=== PATIENT | female | born 1970 | race Caucasian/White ===

== ENCOUNTER 2017-05-30 11:11 | Emergency (ER) | payer MEDICAID ==
[~2017-05-30] VITALS: Ht 157.5 cm; Wt 67.0 kg
[~2017-05-30 11:11] MED LIST: ALBU18HF2 INH; BAC10T PO; BAC15O TP; CARB1TAB35 PO; CLIN-80 PO; CLON-527 PO; CYCL-1 PO; CYCL-35 PO; DEXT5TAB26 PO; GUAI473S11 PO; IBUP-1573 PO; IBUP-1574 PO; IBUP-1984 PO; LAMO25TA62 PO; OMEP-84 PO; ONDA4TAB59 PO; PRED20TA PO; ZIPR20CA2 PO; ZOF4T PO
[2017-05-30 11:42] LABS: BASOPHILS % (AUTO) 0.2 % (0-1); EOSINOPHILS # (AUTO) 0.1 X10'3 (0-0.9); HEMATOCRIT 29.6 % (35.0-45.0); HEMOGLOBIN 9.5 g/dl (12.0-16.0); LYMPHOCYTES # (AUTO) 0.4 X10'3 (1.1-4.8); LYMPHOCYTES % (AUTO) 4.3 % (21-51); MEAN CORPUSCULAR HEMOGLOBIN 24.8 PG (27.0-31.0); MEAN CORPUSCULAR HGB CONC 32.2 % (33.0-36.5); MEAN PLATELET VOLUME 7.6 FL (7.4-10.4); MONOCYTES # (AUTO) 0.2 X10'3 (0-0.9); NEUTROPHILS # (AUTO) 9.5 X10'3 (1.8-7.7); NEUTROPHILS % (AUTO) 92.5 % (42-75); PLATELET COUNT 232 X10'3 (140-440); RED BLOOD COUNT 3.84 X10'6 (4.20-5.60); WHITE BLOOD COUNT 10.3 X10'3 (4.5-11.0)
[2017-05-30 11:49] LABS: PARTIAL THROMBOPLASTIN TIME 23 SECONDS (22-32); PROTHROMBIN TIME 10.1 SECONDS (9.0-12.0)
[2017-05-30 11:55] LABS: ALANINE AMINOTRANSFERASE 27 U/L (12-78); ALBUMIN 3.6 G/DL (3.4-5.0); ALKALINE PHOSPHATASE 86 IU/L (46-116); ANION GAP 11 (8-16); ASPARTATE AMINO TRANSFERASE 15 U/L (10-37); BILIRUBIN,TOTAL 0.2 MG/DL (0.1-1.0); BLOOD UREA NITROGEN 18 MG/DL (7-18); BUN/CREATININE RATIO 20.7 (6.6-38.0); CALCIUM 8.2 MG/DL (8.5-10.1); CHLORIDE 108 MMOL/L (99-107); CREATININE 0.87 MG/DL (0.40-0.90); GLUCOSE 104 MG/DL (70-104); SODIUM 143 MMOL/L (135-145); TOTAL PROTEIN 7.3 G/DL (6.4-8.2); eGFR 70 ML/MIN
[2017-05-30] MEDS ORDERED: potassium Cl oral solution 20 MEQ/15 ML PO ONE (12:10)
[2017-05-30 12:15] LABS: ANISOCYTOSIS 2+; PLATELET ESTIMATE NORMAL; TOTAL CELLS COUNTED 100
[2017-05-30] MEDS ORDERED: azithromycin 250mg tablet PO ONE (12:35)
[2017-05-30] MEDS ORDERED: cyclobenzaprine 10mg tablet PO ONE (12:35)
[2017-05-30] MEDS ORDERED: AZIT-63 PO (13:08)
[2017-05-30] MEDS ORDERED: ketorolac trometh. 30mg/ml inj. IM ONE (13:10)
[2017-05-30 14:05] VITALS: BP 120/72
== END 2017-05-30 14:28 | disposition home or self-care (01) ==
LOC: ER 11:12
DX: R07.89 Other chest pain (principal); R91.8 Other nonspecific abnormal finding of lung field; I10 Essential (primary) hypertension; J45.909 Unspecified asthma, uncomplicated; G89.29 Other chronic pain; K21.9 Gastro-esophageal reflux disease without esophagitis; M19.90 Unspecified osteoarthritis, unspecified site; F15.10 Other stimulant abuse, uncomplicated; F17.210 Nicotine dependence, cigarettes, uncomplicated; Z56.0 Unemployment, unspecified; Z88.6 Allergy status to analgesic agent; Z88.8 Allergy status to other drugs, medicaments and biological substances; Z79.899 Other long term (current) drug therapy
CPT/HCPCS: 36415; 71045; 80053; 84484; 85025; 85610; 85730; 93005; 96372; 99285; J1885

== ENCOUNTER 2017-06-05 20:34 | Emergency (ER) | payer MEDICAID ==
[~2017-06-05] VITALS: Ht 157.5 cm; Wt 70.0 kg
[~2017-06-05 20:34] MED LIST changes: +AZIT-63 PO
[2017-06-05 21:39] LABS: BASOPHILS % (AUTO) 0.6 % (0-1); EOSINOPHILS # (AUTO) 0.1 X10'3 (0-0.9); EOSINOPHILS % (AUTO) 1.9 % (0-6); HEMATOCRIT 29.1 % (35.0-45.0); HEMOGLOBIN 9.4 g/dl (12.0-16.0); LYMPHOCYTES # (AUTO) 2.2 X10'3 (1.1-4.8); LYMPHOCYTES % (AUTO) 28.7 % (21-51); MEAN CORPUSCULAR HEMOGLOBIN 24.4 PG (27.0-31.0); MEAN CORPUSCULAR HGB CONC 32.2 % (33.0-36.5); MEAN CORPUSCULAR VOLUME 75.8 FL (78-98); MEAN PLATELET VOLUME 7.8 FL (7.4-10.4); MONOCYTES # (AUTO) 0.8 X10'3 (0-0.9); MONOCYTES % (AUTO) 10.2 % (2-12); NEUTROPHILS # (AUTO) 4.4 X10'3 (1.8-7.7); NEUTROPHILS % (AUTO) 58.6 % (42-75); PLATELET COUNT 389 X10'3 (140-440); RED BLOOD COUNT 3.84 X10'6 (4.20-5.60); RED CELL DISTRIBUTION WIDTH 17.9 % (11.5-14.5); WHITE BLOOD COUNT 7.6 X10'3 (4.5-11.0)
[2017-06-05 21:48] LABS: PARTIAL THROMBOPLASTIN TIME 25 SECONDS (22-32); PROTHROMBIN TIME 10.2 SECONDS (9.0-12.0)
[2017-06-05 21:53] LABS: ALANINE AMINOTRANSFERASE 40 U/L (12-78); ALBUMIN/GLOBULIN RATIO 0.8 (1.1-1.5); ALKALINE PHOSPHATASE 104 IU/L (46-116); ANION GAP 10 (8-16); ASPARTATE AMINO TRANSFERASE 7 U/L (10-37); BILIRUBIN,TOTAL 0.1 MG/DL (0.1-1.0); BLOOD UREA NITROGEN 10 MG/DL (7-18); BUN/CREATININE RATIO 13.7 (6.6-38.0); CALCIUM 8.3 MG/DL (8.5-10.1); CHLORIDE 106 MMOL/L (99-107); CREATININE 0.73 MG/DL (0.40-0.90); GLUCOSE 100 MG/DL (70-104); POTASSIUM 3.5 MMOL/L (3.5-5.1); SODIUM 140 MMOL/L (135-145); TOTAL CARBON DIOXIDE 23.9 MMOL/L (24-32); TOTAL PROTEIN 6.9 G/DL (6.4-8.2); eGFR 85 ML/MIN
[2017-06-05] MEDS ORDERED: GUAI600T45 PO (22:19)
[2017-06-05] MEDS ORDERED: LEVO500T2 PO (22:19)
[2017-06-05] MEDS ORDERED: ALBU8.5H8 INH (22:19)
[2017-06-05 22:30] VITALS: BP 154/72
== END 2017-06-05 22:31 | disposition home or self-care (01) ==
LOC: ER 20:36
DX: J18.9 Pneumonia, unspecified organism (principal); I10 Essential (primary) hypertension; J45.909 Unspecified asthma, uncomplicated; K21.9 Gastro-esophageal reflux disease without esophagitis; G89.29 Other chronic pain; M19.90 Unspecified osteoarthritis, unspecified site; F15.10 Other stimulant abuse, uncomplicated; Z56.0 Unemployment, unspecified; Z88.6 Allergy status to analgesic agent; Z79.899 Other long term (current) drug therapy
CPT/HCPCS: 36415; 71045; 80053; 84484; 85025; 85610; 85730; 93005; 99285

== ENCOUNTER → 2017-06-07 | Emergency (ER) | payer MEDICAID ==
[~2017-06-07] VITALS: Ht 165.1 cm; Wt 66.0 kg
[~2017-06-07] MED LIST changes: +ALBU8.5H8 INH; +GUAI600T45 PO; +LEVO500T2 PO
[2017-06-07 17:41] VITALS: BP 139/83
== END | disposition home or self-care (01) ==
LOC: ER 16:54
DX: J18.9 Pneumonia, unspecified organism (principal); I10 Essential (primary) hypertension; F15.10 Other stimulant abuse, uncomplicated; J45.909 Unspecified asthma, uncomplicated; G89.29 Other chronic pain; K21.9 Gastro-esophageal reflux disease without esophagitis; Z90.49 Acquired absence of other specified parts of digestive tract; Z88.6 Allergy status to analgesic agent; Z88.8 Allergy status to other drugs, medicaments and biological substances; Z79.899 Other long term (current) drug therapy; Z56.0 Unemployment, unspecified
CPT/HCPCS: 99281

== ENCOUNTER 2017-06-18 13:53 | Emergency (ER) | payer MEDICAID ==
[~2017-06-18] VITALS: Ht 157.5 cm; Wt 61.0 kg
[~2017-06-18 13:53] MED LIST changes: -LEVO500T2 PO
[2017-06-18 15:16] VITALS: BP 126/80
[2017-06-18 15:52] LABS: BASOPHILS % (AUTO) 0.8 % (0-1); EOSINOPHILS # (AUTO) 0.1 X10'3 (0-0.9); EOSINOPHILS % (AUTO) 1.9 % (0-6); HEMATOCRIT 31.6 % (35.0-45.0); HEMOGLOBIN 10.2 g/dl (12.0-16.0); LYMPHOCYTES # (AUTO) 1.3 X10'3 (1.1-4.8); LYMPHOCYTES % (AUTO) 26.1 % (21-51); MEAN CORPUSCULAR HEMOGLOBIN 24.3 PG (27.0-31.0); MEAN CORPUSCULAR HGB CONC 32.3 % (33.0-36.5); MEAN CORPUSCULAR VOLUME 75.4 FL (78-98); MEAN PLATELET VOLUME 7.6 FL (7.4-10.4); MONOCYTES # (AUTO) 0.5 X10'3 (0-0.9); MONOCYTES % (AUTO) 9.1 % (2-12); NEUTROPHILS # (AUTO) 3.2 X10'3 (1.8-7.7); NEUTROPHILS % (AUTO) 62.1 % (42-75); PLATELET COUNT 522 X10'3 (140-440); RED BLOOD COUNT 4.19 X10'6 (4.20-5.60); RED CELL DISTRIBUTION WIDTH 18.3 % (11.5-14.5); WHITE BLOOD COUNT 5.2 X10'3 (4.5-11.0)
[2017-06-18 16:12] LABS: ALANINE AMINOTRANSFERASE 26 U/L (12-78); ALBUMIN 3.9 G/DL (3.4-5.0); ALKALINE PHOSPHATASE 105 IU/L (46-116); ANION GAP 11 (8-16); ASPARTATE AMINO TRANSFERASE 16 U/L (10-37); BILIRUBIN,TOTAL 0.3 MG/DL (0.1-1.0); BLOOD UREA NITROGEN 19 MG/DL (7-18); BUN/CREATININE RATIO 12.4 (6.6-38.0); CALCIUM 8.8 MG/DL (8.5-10.1); CHLORIDE 103 MMOL/L (99-107); CREATININE 1.53 MG/DL (0.40-0.90); GLUCOSE 96 MG/DL (70-104); POTASSIUM 3.2 MMOL/L (3.5-5.1); SODIUM 140 MMOL/L (135-145); TOTAL CARBON DIOXIDE 25.9 MMOL/L (24-32); TROPONIN I < 0.04 NG/ML (0.0-0.05); eGFR 36 ML/MIN
[2017-06-18] MEDS ORDERED: ipratropium/albuterol 3ml nebule NEB ONE (16:40)
[2017-06-18] MEDS ORDERED: ALBU8.5H8 IH (16:45)
[2017-06-18] MEDS ORDERED: POTA10TA10 PO (16:45)
[2017-06-18] MEDS ORDERED: METH4TAB81 PO (16:45)
[2017-06-30] MEDS ORDERED: PANT-47 PO (15:11)
[2017-06-30] MEDS ORDERED: POLY17PO10 PO (15:12)
[2017-06-30] MEDS ORDERED: ONDA8TAB9 PO (15:24)
== END 2017-06-18 17:47 | disposition home or self-care (01) ==
LOC: ER 13:54
DX: J45.909 Unspecified asthma, uncomplicated (principal); D64.9 Anemia, unspecified; E87.6 Hypokalemia; I10 Essential (primary) hypertension; K21.9 Gastro-esophageal reflux disease without esophagitis; G89.29 Other chronic pain; M19.90 Unspecified osteoarthritis, unspecified site; F15.10 Other stimulant abuse, uncomplicated; F17.200 Nicotine dependence, unspecified, uncomplicated; Z56.0 Unemployment, unspecified; Z88.6 Allergy status to analgesic agent; Z88.8 Allergy status to other drugs, medicaments and biological substances; Z79.899 Other long term (current) drug therapy
CPT/HCPCS: 36415; 80053; 84484; 85025; 93005; 94640; 94760; 99285

== ENCOUNTER 2017-10-23 14:11 | Emergency (ER) | payer MEDICAID ==
[~2017-10-23] VITALS: Ht 157.5 cm; Wt 61.8 kg
[~2017-10-23 14:11] MED LIST changes: +ALBU8.5H8 IH; -AZIT-63 PO; -CLIN-80 PO; +CLIN300C85 PO; +METH4TAB81 PO; +ONDA8TAB9 PO; +PANT-47 PO
[2017-10-23 14:17] VITALS: BP 181/117
[2017-10-23] MEDS ORDERED: PENI500T2 PO (14:25)
[2017-10-23] MEDS ORDERED: ACET1TAB12 PO (14:25)
== END 2017-10-23 14:33 | disposition home or self-care (01) ==
LOC: ER 14:12
DX: K08.89 Other specified disorders of teeth and supporting structures (principal); I10 Essential (primary) hypertension; J45.909 Unspecified asthma, uncomplicated; K21.9 Gastro-esophageal reflux disease without esophagitis; G89.29 Other chronic pain; M19.90 Unspecified osteoarthritis, unspecified site; F15.90 Other stimulant use, unspecified, uncomplicated; Z90.49 Acquired absence of other specified parts of digestive tract; Z98.51 Tubal ligation status; Z56.0 Unemployment, unspecified; Z88.6 Allergy status to analgesic agent; Z88.8 Allergy status to other drugs, medicaments and biological substances; Z79.899 Other long term (current) drug therapy
CPT/HCPCS: 99283

== ENCOUNTER 2017-11-04 21:03 | Emergency (ER) | payer MEDICAID ==
[~2017-11-04] VITALS: Ht 157.5 cm; Wt 61.8 kg
[~2017-11-04 21:03] MED LIST changes: +ACET1TAB12 PO; +PENI500T2 PO
[2017-11-04 21:17] VITALS: BP 157/96
[2017-11-04 22:15] LABS: BASOPHILS % (AUTO) 0.4 % (0-1); EOSINOPHILS # (AUTO) 0.1 X10'3 (0-0.9); EOSINOPHILS % (AUTO) 1.4 % (0-6); HEMOGLOBIN 12.4 g/dl (12.0-16.0); LYMPHOCYTES # (AUTO) 1.3 X10'3 (1.1-4.8); LYMPHOCYTES % (AUTO) 15.8 % (21-51); MEAN CORPUSCULAR HEMOGLOBIN 28.6 PG (27.0-31.0); MEAN CORPUSCULAR HGB CONC 32.6 % (33.0-36.5); MEAN CORPUSCULAR VOLUME 87.8 FL (78-98); MEAN PLATELET VOLUME 9.2 FL (7.4-10.4); MONOCYTES # (AUTO) 0.5 X10'3 (0-0.9); MONOCYTES % (AUTO) 6.9 % (2-12); NEUTROPHILS % (AUTO) 75.5 % (42-75); PLATELET COUNT 251 X10'3 (140-440); RED BLOOD COUNT 4.33 X10'6 (4.20-5.60); RED CELL DISTRIBUTION WIDTH 16.9 % (11.5-14.5); WHITE BLOOD COUNT 7.9 X10'3 (4.5-11.0)
[2017-11-04 22:23] LABS: URINE HCG NEGATIVE (NEG)
[2017-11-04 22:26] LABS: PROTHROMBIN TIME 10.3 SECONDS (9.0-12.0)
[2017-11-04 22:32] LABS: CLARITY,URINE CLEAR (Clear); COLOR,URINE YELLOW (Yellow); GLUCOSE, URINE NEGATIVE (Neg); KETONES,URINE NEGATIVE (Neg); LEUKOCYTE ESTERASE ,URINE NEGATIVE (Neg); NITRITES, URINE NEGATIVE (Neg); OCCULT BLOOD,URINE NEGATIVE (Neg); PROTEIN,URINE NEGATIVE (Neg); UROBILINOGEN,URINE 0.2 E.U/dL (0.2-1.0)
[2017-11-04 22:33] LABS: ALANINE AMINOTRANSFERASE 19 U/L (12-78); ALBUMIN 3.4 G/DL (3.4-5.0); ALBUMIN/GLOBULIN RATIO 1.1 (1.1-1.5); ALKALINE PHOSPHATASE 82 IU/L (46-116); ANION GAP 7 (8-16); ASPARTATE AMINO TRANSFERASE 16 U/L (10-37); BILIRUBIN,TOTAL 0.2 MG/DL (0.1-1.0); BLOOD UREA NITROGEN 13 MG/DL (7-18); BUN/CREATININE RATIO 15.9 (6.6-38.0); CHLORIDE 104 MMOL/L (99-107); CREATININE 0.82 MG/DL (0.40-0.90); GLUCOSE 73 MG/DL (70-104); POTASSIUM 3.2 MMOL/L (3.5-5.1); SODIUM 138 MMOL/L (135-145); TOTAL CARBON DIOXIDE 27.4 MMOL/L (24-32); TOTAL PROTEIN 6.5 G/DL (6.4-8.2); eGFR 75 ML/MIN
[2017-11-04 22:37] LABS: UA COLLECTION TYPE CLN CATCH MIDSTREAM
[2017-11-04 23:13] LABS: URINE AMPHETAMINE SCREEN POSITIVE (Neg); URINE BARBITUATE SCREEN NEGATIVE (Neg); URINE BENZODIAZEPINES SCREEN NEGATIVE (Neg); URINE CANNABINOID SCREEN NEGATIVE (Neg); URINE COCAINE SCREEN NEGATIVE (Neg); URINE METHADONE SCREEN NEGATIVE (Neg); URINE OPIATE SCREEN POSITIVE (Neg); URINE PHENCYCLIDINE SCREEN NEGATIVE (Neg)
[2017-11-04 23:20] LABS: LIPASE 202 U/L (73-393)
== END 2017-11-04 23:31 | disposition home or self-care (01) ==
LOC: ER 21:04
DX: K29.70 Gastritis, unspecified, without bleeding (principal); I10 Essential (primary) hypertension; J45.909 Unspecified asthma, uncomplicated; K21.9 Gastro-esophageal reflux disease without esophagitis; F17.200 Nicotine dependence, unspecified, uncomplicated; F15.90 Other stimulant use, unspecified, uncomplicated; F31.9 Bipolar disorder, unspecified; Z90.49 Acquired absence of other specified parts of digestive tract; Z98.51 Tubal ligation status; Z56.0 Unemployment, unspecified; Z88.8 Allergy status to other drugs, medicaments and biological substances; Z79.2 Long term (current) use of antibiotics; Z79.899 Other long term (current) drug therapy
CPT/HCPCS: 36415; 80053; 80305; 81003; 81025; 83690; 85025; 85610; 99291

== ENCOUNTER 2017-11-21 10:09 | Emergency (ER) | payer MEDICAID ==
[~2017-11-21] VITALS: Ht 157.5 cm; Wt 63.6 kg
[~2017-11-21 10:09] MED LIST changes: -ALBU18HF2 INH; -ALBU8.5H8 IH; -ALBU8.5H8 INH; -BAC10T PO; -BAC15O TP; -CARB1TAB35 PO; +CEPH500C5 PO; -CLIN300C85 PO; -CLON-527 PO; -CYCL-1 PO; -CYCL-35 PO; -DEXT5TAB26 PO; -GUAI473S11 PO; -GUAI600T45 PO; -IBUP-1573 PO; -IBUP-1574 PO; -IBUP-1984 PO; -LAMO25TA62 PO; -METH4TAB81 PO; -OMEP-84 PO; -ONDA4TAB59 PO; -ONDA8TAB9 PO; -PRED20TA PO; -ZIPR20CA2 PO; -ZOF4T PO
[2017-11-21 10:49] LABS: BASOPHILS % (AUTO) 0.3 % (0-1); EOSINOPHILS # (AUTO) 0.2 X10'3 (0-0.9); EOSINOPHILS % (AUTO) 1.4 % (0-6); HEMATOCRIT 34.1 % (35.0-45.0); HEMOGLOBIN 11.6 g/dl (12.0-16.0); LYMPHOCYTES # (AUTO) 1.2 X10'3 (1.1-4.8); LYMPHOCYTES % (AUTO) 10.7 % (21-51); MEAN CORPUSCULAR HEMOGLOBIN 30.2 PG (27.0-31.0); MEAN PLATELET VOLUME 8.6 FL (7.4-10.4); MONOCYTES # (AUTO) 0.7 X10'3 (0-0.9); MONOCYTES % (AUTO) 6.5 % (2-12); NEUTROPHILS % (AUTO) 81.1 % (42-75); PLATELET COUNT 261 X10'3 (140-440); RED BLOOD COUNT 3.83 X10'6 (4.20-5.60); RED CELL DISTRIBUTION WIDTH 17.2 % (11.5-14.5); WHITE BLOOD COUNT 11.1 X10'3 (4.5-11.0)
[2017-11-21 10:55] LABS: CLARITY,URINE SLIGHTLY CLOUDY (Clear); COLOR,URINE YELLOW (Yellow); GLUCOSE, URINE NEGATIVE (Neg); KETONES,URINE NEGATIVE (Neg); LEUKOCYTE ESTERASE ,URINE LARGE (Neg); NITRITES, URINE NEGATIVE (Neg); OCCULT BLOOD,URINE TRACE-LYSED (Neg); PH,URINE 6.5 (4.8-8.0); PROTEIN,URINE NEGATIVE (Neg); UROBILINOGEN,URINE 0.2 E.U/dL (0.2-1.0)
[2017-11-21 10:57] LABS: UA COLLECTION TYPE CLN CATCH MIDSTREAM
[2017-11-21 11:00] LABS: PROTHROMBIN TIME 10.6 SECONDS (9.0-12.0)
[2017-11-21 11:03] LABS: URINE HCG NEGATIVE (NEG)
[2017-11-21 11:05] LABS: ALANINE AMINOTRANSFERASE 22 U/L (12-78); ALBUMIN 3.1 G/DL (3.4-5.0); ALKALINE PHOSPHATASE 102 IU/L (46-116); ANION GAP 7 (8-16); ASPARTATE AMINO TRANSFERASE 16 U/L (10-37); BILIRUBIN,TOTAL 0.4 MG/DL (0.1-1.0); BLOOD UREA NITROGEN 7 MG/DL (7-18); BUN/CREATININE RATIO 8.2 (6.6-38.0); CALCIUM 8.1 MG/DL (8.5-10.1); CHLORIDE 106 MMOL/L (99-107); CREATININE 0.85 MG/DL (0.40-0.90); GLUCOSE 96 MG/DL (70-104); POTASSIUM 3.8 MMOL/L (3.5-5.1); SODIUM 139 MMOL/L (135-145); TOTAL PROTEIN 6.3 G/DL (6.4-8.2); eGFR 72 ML/MIN
[2017-11-21 11:26] LABS: BACTERIA,URINE 3+ /HPF (Neg); MUCUS STRANDS MODERATE /LPF (Neg); RBC,URINE 0-2 /HPF (0-2); SQUAMOUS EPITHELIAL CELL,UR MANY /LPF (FEW); WBC,URINE 30-50 /HPF (0-4)
[2017-11-21] MEDS ORDERED: HYDROcodone/acetaminophen 5mg/325mg tablet PO ONE (12:05)
[2017-11-21] MEDS ORDERED: dicyclomine 10mg/ml 2ml ampule IM ONE (12:05)
[2017-11-21] MEDS ORDERED: DICY10CA88 PO (13:01)
[2017-11-21] MEDS ORDERED: IBUP-1985 PO (13:01)
[2017-11-21 13:19] VITALS: BP 115/65
== END 2017-11-21 13:28 | disposition home or self-care (01) ==
LOC: ER 10:10
DX: N83.209 Unspecified ovarian cyst, unspecified side (principal); I10 Essential (primary) hypertension; J45.909 Unspecified asthma, uncomplicated; K21.9 Gastro-esophageal reflux disease without esophagitis; G89.29 Other chronic pain; M19.90 Unspecified osteoarthritis, unspecified site; F17.200 Nicotine dependence, unspecified, uncomplicated; F15.90 Other stimulant use, unspecified, uncomplicated; Z90.49 Acquired absence of other specified parts of digestive tract; Z88.6 Allergy status to analgesic agent; Z79.899 Other long term (current) drug therapy; Z56.0 Unemployment, unspecified
CPT/HCPCS: 36415; 80053; 81001; 81025; 85025; 85610; 96372; 99284; J0500

== ENCOUNTER 2018-02-18 06:11 | Emergency (ER) | payer MEDICAID ==
[~2018-02-18] VITALS: Ht 157.5 cm; Wt 61.8 kg
[~2018-02-18 06:11] MED LIST changes: +IBUP-1985 PO; -PENI500T2 PO
[2018-02-18 06:20] VITALS: BP 178/106
[2018-02-18] MEDS ORDERED: ACET-3067 PO (06:34)
[2018-02-18] MEDS ORDERED: acetaminophen w/codeine (30MG) #3 tablet PO ONE (06:35)
[2018-02-18] MEDS ORDERED: PENI500T2 PO (06:35)
[2018-02-19] MEDS ORDERED: AZIT250T2 PO (10:03)
== END 2018-02-18 06:30 | disposition home or self-care (01) ==
LOC: ER 06:12
DX: K02.9 Dental caries, unspecified (principal); I10 Essential (primary) hypertension; J45.909 Unspecified asthma, uncomplicated; K21.9 Gastro-esophageal reflux disease without esophagitis; M19.90 Unspecified osteoarthritis, unspecified site; F15.90 Other stimulant use, unspecified, uncomplicated; Z88.6 Allergy status to analgesic agent; Z79.899 Other long term (current) drug therapy; Z90.49 Acquired absence of other specified parts of digestive tract; Z98.51 Tubal ligation status; Z87.19 Personal history of other diseases of the digestive system; Z87.09 Personal history of other diseases of the respiratory system
CPT/HCPCS: 99283

== ENCOUNTER 2018-02-18 17:05 | Emergency (ER) | payer MEDICAID ==
[~2018-02-18] VITALS: Ht 157.5 cm; Wt 61.8 kg
[~2018-02-18 17:05] MED LIST changes: +ACET-3067 PO; +PENI500T2 PO
[2018-02-18] MEDS ORDERED: metoclopramide 5 mg/ml inj IM ONE (19:30)
[2018-02-18] MEDS ORDERED: diphenhydrAMINE 50 mg/ml inj IM ONE (19:30)
[2018-02-18 19:45] VITALS: BP 147/87
[2018-02-19] MEDS ORDERED: AZIT250T2 PO (10:03)
== END 2018-02-18 19:52 | disposition home or self-care (01) ==
LOC: ER 17:05
DX: R51 Headache (principal); R11.2 Nausea with vomiting, unspecified; I10 Essential (primary) hypertension; J45.909 Unspecified asthma, uncomplicated; K21.9 Gastro-esophageal reflux disease without esophagitis; G89.29 Other chronic pain; M19.90 Unspecified osteoarthritis, unspecified site; F15.90 Other stimulant use, unspecified, uncomplicated; Z90.49 Acquired absence of other specified parts of digestive tract; Z98.51 Tubal ligation status; Z88.6 Allergy status to analgesic agent; Z88.8 Allergy status to other drugs, medicaments and biological substances; Z56.0 Unemployment, unspecified
CPT/HCPCS: 96372; 99283; J1200; J2765

== ENCOUNTER 2018-02-19 09:13 | Emergency (ER) | payer MEDICAID ==
[~2018-02-19] VITALS: Ht 157.5 cm; Wt 64.9 kg
[2018-02-19] MEDS ORDERED: AZIT250T2 PO (10:03)
[2018-02-19 10:23] VITALS: BP 130/76
== END 2018-02-19 10:25 | disposition home or self-care (01) ==
LOC: ER 09:13
DX: J20.9 Acute bronchitis, unspecified (principal); J45.909 Unspecified asthma, uncomplicated; I10 Essential (primary) hypertension; K21.9 Gastro-esophageal reflux disease without esophagitis; G89.29 Other chronic pain; M19.90 Unspecified osteoarthritis, unspecified site; F17.200 Nicotine dependence, unspecified, uncomplicated; F15.90 Other stimulant use, unspecified, uncomplicated; Z90.49 Acquired absence of other specified parts of digestive tract; Z98.51 Tubal ligation status; Z88.6 Allergy status to analgesic agent; Z79.2 Long term (current) use of antibiotics; Z56.0 Unemployment, unspecified
CPT/HCPCS: 93005; 99283

== ENCOUNTER 2018-03-06 09:05 | Emergency (ER) | payer MEDICAID ==
[~2018-03-06] VITALS: Ht 157.5 cm; Wt 61.8 kg
[2018-03-06 09:26] VITALS: BP 164/103
== END 2018-03-06 10:10 | disposition home or self-care (01) ==
LOC: ER 09:06
DX: M79.671 Pain in right foot (principal); K04.7 Periapical abscess without sinus; I10 Essential (primary) hypertension; J45.909 Unspecified asthma, uncomplicated; K21.9 Gastro-esophageal reflux disease without esophagitis; G89.29 Other chronic pain; F15.90 Other stimulant use, unspecified, uncomplicated; Z90.49 Acquired absence of other specified parts of digestive tract; Z98.51 Tubal ligation status; Z56.0 Unemployment, unspecified; Z88.6 Allergy status to analgesic agent; Z88.5 Allergy status to narcotic agent
CPT/HCPCS: 99281

== ENCOUNTER 2018-07-30 11:11 | Emergency (ER) | payer MEDICAID ==
[~2018-07-30] VITALS: Ht 157.5 cm; Wt 62.7 kg
[2018-07-30 12:47] VITALS: BP 141/86
[2018-07-30] MEDS ORDERED: ACET-2119 PO (14:35)
[2018-07-30] MEDS ORDERED: PENI500T2 PO (14:35)
== END 2018-07-30 14:43 | disposition home or self-care (01) ==
LOC: ER 11:12
DX: K04.7 Periapical abscess without sinus (principal); K05.10 Chronic gingivitis, plaque induced; K03.81 Cracked tooth; I10 Essential (primary) hypertension; J45.909 Unspecified asthma, uncomplicated; K21.9 Gastro-esophageal reflux disease without esophagitis; G89.29 Other chronic pain; M19.90 Unspecified osteoarthritis, unspecified site; F15.90 Other stimulant use, unspecified, uncomplicated; Z90.49 Acquired absence of other specified parts of digestive tract; Z98.51 Tubal ligation status; Z56.0 Unemployment, unspecified; Z88.6 Allergy status to analgesic agent; Z88.8 Allergy status to other drugs, medicaments and biological substances; Z79.899 Other long term (current) drug therapy
CPT/HCPCS: 99283

== ENCOUNTER 2019-03-01 05:20 | Emergency (ER) | payer MEDICAID ==
[~2019-03-01] VITALS: Ht 157.5 cm; Wt 69.5 kg
[2019-03-01 05:24] VITALS: BP 184/111
[2019-03-01] MEDS ORDERED: AMOX500C2 PO (05:45)
[2019-03-01] MEDS ORDERED: HYDR-3965 PO (05:45)
[2019-03-01] MEDS ORDERED: PRED20TA PO (05:45)
[2019-03-01] MEDS ORDERED: ONDA4TAB6 PO (05:45)
[2019-03-01] MEDS ORDERED: ondansetron 4mg rapidly disintigrating tab PO ONE (06:10)
[2019-03-01] MEDS ORDERED: HYDROcodone/acetaminophen 5mg/325mg tablet PO ONE (06:10)
== END 2019-03-01 06:15 | disposition home or self-care (01) ==
LOC: ER 05:21
DX: K02.9 Dental caries, unspecified (principal); I10 Essential (primary) hypertension; J45.909 Unspecified asthma, uncomplicated; K21.9 Gastro-esophageal reflux disease without esophagitis; G89.29 Other chronic pain; F41.9 Anxiety disorder, unspecified; F31.9 Bipolar disorder, unspecified; F15.90 Other stimulant use, unspecified, uncomplicated; Z90.49 Acquired absence of other specified parts of digestive tract; Z98.51 Tubal ligation status; Z56.0 Unemployment, unspecified; Z88.6 Allergy status to analgesic agent; Z88.5 Allergy status to narcotic agent; Z79.2 Long term (current) use of antibiotics; Z79.899 Other long term (current) drug therapy
CPT/HCPCS: 99283

== ENCOUNTER 2019-10-29 14:06 | Emergency (ER) | payer MEDICAID ==
[~2019-10-29] VITALS: Ht 157.5 cm; Wt 73.1 kg
[~2019-10-29 14:06] MED LIST changes: -ACET-3067 PO; -ACET1TAB12 PO; -CEPH500C5 PO; -IBUP-1985 PO; +ONDA4TAB6 PO; -PANT-47 PO; -PENI500T2 PO
[2019-10-29 14:21] VITALS: BP 182/104
[2019-10-29 14:46] LABS: URINE HCG NEGATIVE (NEG)
[2019-10-29 14:51] LABS: CLARITY,URINE SLIGHTLY CLOUDY (Clear); COLOR,URINE STRAW (Yellow); GLUCOSE, URINE NEGATIVE (Neg); KETONES,URINE NEGATIVE (Neg); LEUKOCYTE ESTERASE ,URINE LARGE (Neg); NITRITES, URINE NEGATIVE (Neg); OCCULT BLOOD,URINE TRACE-INTACT (Neg); PROTEIN,URINE NEGATIVE (Neg); UROBILINOGEN,URINE 0.2 E.U/dL (0.2-1.0)
[2019-10-29 14:52] LABS: UA COLLECTION TYPE CLN CATCH MIDSTREAM
[2019-10-29 15:02] LABS: RBC,URINE 0-2 /HPF (0-2); WBC,URINE 30-50 /HPF (0-4)
[2019-10-29 15:03] LABS: BACTERIA,URINE 2+ /HPF (Neg); MUCUS STRANDS FEW /LPF (Neg); SQUAMOUS EPITHELIAL CELL,UR MODERATE /LPF (FEW); TRICHOMONAS,URINE FEW /HPF (NEGATIVE); WBC CLUMPS,URINE MODERATE /HPF (NEGATIVE)
[2019-10-29] MEDS ORDERED: AMOX-422 PO (15:05)
== END 2019-10-29 15:15 | disposition home or self-care (01) ==
LOC: ER 14:06
DX: N39.0 Urinary tract infection, site not specified (principal); K08.89 Other specified disorders of teeth and supporting structures; N89.8 Other specified noninflammatory disorders of vagina; I10 Essential (primary) hypertension; J45.909 Unspecified asthma, uncomplicated; K21.9 Gastro-esophageal reflux disease without esophagitis; G89.29 Other chronic pain; F41.9 Anxiety disorder, unspecified; F31.9 Bipolar disorder, unspecified; F17.200 Nicotine dependence, unspecified, uncomplicated; F15.90 Other stimulant use, unspecified, uncomplicated; M19.90 Unspecified osteoarthritis, unspecified site; Z59.0 Homelessness; Z56.0 Unemployment, unspecified; Z90.49 Acquired absence of other specified parts of digestive tract; Z98.51 Tubal ligation status; Z72.89 Other problems related to lifestyle; Z88.6 Allergy status to analgesic agent; Z79.899 Other long term (current) drug therapy
CPT/HCPCS: 81001; 81025; 87088; 99283

== ENCOUNTER 2020-07-20 10:48 | Emergency (ER) | payer MEDICAID ==
[~2020-07-20] VITALS: Ht 157.5 cm; Wt 78.0 kg
[~2020-07-20 10:48] MED LIST changes: +BARIUM SULFATE 340 ML SUSP.RECON***PROCEDURE AREA ONLY**DONT ENTER PO ONE
[2020-07-20 11:15] VITALS: BP 141/105
[2020-07-20] MEDS ORDERED: acetaminophen/codeine 120mg/12mg per 5ml cup PO ONE (12:55)
[2020-07-20] MEDS ORDERED: famotidine 20mg tablet PO ONE (12:55)
[2020-07-20] MEDS ORDERED: ACET5SOL2 PO ×2 (14:42→14:46)
[2020-07-20] MEDS ORDERED: PANT-47 PO (14:42)
== END 2020-07-20 15:04 | disposition home or self-care (01) ==
LOC: ER 10:49
DX: K13.70 Unspecified lesions of oral mucosa (principal); R07.0 Pain in throat; I10 Essential (primary) hypertension; J45.909 Unspecified asthma, uncomplicated; K21.9 Gastro-esophageal reflux disease without esophagitis; G89.29 Other chronic pain; M19.90 Unspecified osteoarthritis, unspecified site; F15.90 Other stimulant use, unspecified, uncomplicated; F17.200 Nicotine dependence, unspecified, uncomplicated; Z87.81 Personal history of (healed) traumatic fracture; Z56.0 Unemployment, unspecified; Z59.0 Homelessness; Z90.49 Acquired absence of other specified parts of digestive tract; Z98.51 Tubal ligation status; Z87.01 Personal history of pneumonia (recurrent); Z88.6 Allergy status to analgesic agent; Z88.8 Allergy status to other drugs, medicaments and biological substances; Z79.899 Other long term (current) drug therapy
CPT/HCPCS: 74220; 99283

== ENCOUNTER 2021-10-17 03:57 | Inpatient (IN) | payer MEDICAID ==
[~2021-10-17] VITALS: Ht 157.5 cm; Wt 71.4 kg
[2021-10-17] VITALS (12 sets, daily range): BP systolic 91–123; BP diastolic 49–73
[~2021-10-17 03:57] MED LIST changes: +ACET5SOL2 PO; -BARIUM SULFATE 340 ML SUSP.RECON***PROCEDURE AREA ONLY**DONT ENTER PO ONE; +PANT-47 PO
[2021-10-17] MEDS ORDERED: magnesium Cl slow-release 64mg tablet PO PRN (04:40)
[2021-10-17] MEDS ORDERED: magnesium hydroxide 30ml (MOM) UD suspension PO PRN (04:40)
[2021-10-17] MEDS ORDERED: HYDROcodone/acetaminophen 5mg/325mg tablet PO PRN ×2 (04:40→14:45)
[2021-10-17] MEDS: normal saline 1000ml 1,000 ML IV SCH ×2 (04:40→14:40)
[2021-10-17] MEDS ORDERED: POTASSIUM BICARB 20meq eff tab 20 MEQ TABLET.EFF PO PRN ×2 (04:40)
[2021-10-17] MEDS ORDERED: magnesium 2GM in 50ml NS 50 ML IV PRN (04:40)
[2021-10-17] MEDS ORDERED: morphine 2 MG/ML inj. syringe IV PRN ×3 (04:40→14:10)
[2021-10-17] MEDS ORDERED: acetaminophen 325mg tablet PO PRN ×2 (04:40)
[2021-10-17] MEDS ORDERED: magnesium 4gm in 100ml NS 100 ML IV PRN (04:40)
[2021-10-17] MEDS ORDERED: HYDROcodone/acetaminophen 10/325mg tab PO PRN (04:40)
[2021-10-17] MEDS ORDERED: potassium CL 10mEq/100ml bag 100 ML IV PRN (04:40)
[2021-10-17] MEDS ORDERED: ondansetron/PF 4mg/2ml inj IV PRN ×2 (04:40→14:10)
[2021-10-17] MEDS ORDERED: LISI20TA28 PO (04:42)
[2021-10-17] MEDS ORDERED: CIME200T95 PO (04:42)
[2021-10-17] MEDS ORDERED: VALA100031 PO (04:42)
[2021-10-17] MEDS ORDERED: PANT20TA18 PO (04:42)
[2021-10-17] MEDS ORDERED: VALA500T PO (05:08)
--- NOTE | 2021-10-17 07:15 | NUR ---
Patient in room [facility]TH[facility] 4015A. I have received report from PHIL TENORIO FROM ER and had the opportunity to ask questions and assume patient care.
[2021-10-17] MEDS: K and/or MAG REPLACEMENT MC SCH ×2 (08:00→20:00)
[2021-10-17] MEDS: heparin, porcine 5000 units/ml vial SQ SCH ×2 (08:00→20:00)
[2021-10-17] MEDS: valacyclovir 500mg tablet PO SCH (08:06)
[2021-10-17] MEDS: pantoprazole 40mg Tablet.DR PO SCH (08:07)
[2021-10-17] MEDS: lisinopril 20mg tablet PO SCH (08:24)
[2021-10-17 08:47] LABS: ALANINE AMINOTRANSFERASE 40 U/L (12-78); ALBUMIN 3.3 G/DL (3.4-5.0); ALKALINE PHOSPHATASE 93 IU/L (46-116); ANION GAP 12 (8-16); ASPARTATE AMINO TRANSFERASE 40 U/L (10-37); BILIRUBIN,TOTAL 0.2 MG/DL (0.1-1.0); BLOOD UREA NITROGEN 9 MG/DL (7-18); BUN/CREATININE RATIO 8.7 (6.6-38.0); CALCIUM 7.6 MG/DL (8.5-10.1); CHLORIDE 108 MMOL/L (99-107); CREATININE 1.03 MG/DL (0.40-0.90); GLUCOSE 93 MG/DL (70-104); POTASSIUM 3.7 MMOL/L (3.5-5.1); SODIUM 145 MMOL/L (135-145); TOTAL CARBON DIOXIDE 25.4 MMOL/L (24-32); TOTAL PROTEIN 6.7 G/DL (6.4-8.2); eGFR 56 ML/MIN
[2021-10-17 08:58] LABS: BASOPHILS % (AUTO) 0.6 % (0-1); EOSINOPHILS % (AUTO) 0.7 % (0-6); LYMPHOCYTES # (AUTO) 0.9 X10'3 (1.1-4.8); LYMPHOCYTES % (AUTO) 26.7 % (21-51); MEAN CORPUSCULAR HEMOGLOBIN 26.5 PG (27.0-31.0); MEAN CORPUSCULAR HGB CONC 32.3 g/dL (33.0-36.5); MEAN CORPUSCULAR VOLUME 82.3 FL (78-98); MONOCYTES # (AUTO) 0.3 X10'3 (0-0.9); MONOCYTES % (AUTO) 9.8 % (2-12); NEUTROPHILS # (AUTO) 2.2 X10'3 (1.8-7.7); NEUTROPHILS % (AUTO) 62.2 % (42-75); PLATELET COUNT 177 X10'3 (140-440); RED BLOOD COUNT 4.13 X10'6 (4.20-5.60); RED CELL DISTRIBUTION WIDTH 17.2 % (11.5-14.5); WHITE BLOOD COUNT 3.5 X10'3 (4.5-11.0)
[2021-10-17 10:04] LABS: APTT 24 SECONDS (22-32)
[2021-10-17] MEDS: piperacillin/tazo 3.375gm/50ml 50 ML IV SCH ×2 (11:17→17:09)
[2021-10-17] MEDS ORDERED: BUPIVAcaine/PF 2.5 mg/ml (0.25%) 30ml vial ONE (11:28)
[2021-10-17] MEDS ORDERED: LIDOcaine 1% 30ml preserv. free vial ONE (11:28)
[2021-10-17] MEDS ORDERED: INDOCYANINE GREEN 25 MG/10 ML VIAL IV STA (11:53)
[2021-10-17] MEDS ORDERED: glycopyrrolate 0.2mg/ml inj ONE (13:17)
[2021-10-17] MEDS ORDERED: neostigmine methylsulfate 1 MG/ML 10ml vial ONE (13:17)
[2021-10-17] MEDS ORDERED: sevoflurane 250ml liquid IH ONE (13:17)
[2021-10-17] MEDS ORDERED: dexamethasone sod phosphate 10mg/ml inj ONE (13:17)
[2021-10-17] MEDS ORDERED: ondansetron/PF 4mg/2ml inj ONE (13:17)
[2021-10-17] MEDS ORDERED: midazolam 1 mg/ML 2ml injection ONE (13:29)
[2021-10-17] MEDS ORDERED: fentaNYL /PF 50mcg/ml 5ml ampule ONE (13:29)
[2021-10-17] MEDS ORDERED: LIDOcaine 2% (20mg/ml) 5ml vial ONE (13:31)
[2021-10-17] MEDS ORDERED: rocuronium 10mg/ml inj IV ONE ×2 (13:31→13:33)
[2021-10-17] MEDS ORDERED: propofol inj 20 ML IV ONE (13:31)
[2021-10-17] MEDS ORDERED: ringers solution, lacted 1,000 ML IV SCH (14:10)
[2021-10-17] MEDS ORDERED: meperidine/PF 25mg/ml syringe IV PRN ×3 (14:10)
[2021-10-17] MEDS ORDERED: proCHLORperazine 10 MG/2 ml inj IV PRN (14:10)
[2021-10-17] MEDS ORDERED: morphine 4 MG/ML inj SYRINge IV PRN (14:10)
[2021-10-17] MEDS ORDERED: ketorolac trometh. 30mg/ml inj. ONE (14:21)
[2021-10-17] MEDS ORDERED: acetaminophen 1,000mg/100ml IV 100 ML IV ONE (14:21)
--- NOTE | 2021-10-17 14:35 | NUR ---
PT WAS MOVED TO BED IN OR-PT COVID + THEREFORE RECOVERY WAS DONE IN OR, PT WAKING UP, VSS, DENIES PAIN, DR SHULTZ PRESENT-REPORT GIVEN, 4 BANDAIDS TO ABD-CDI, SCDS ON, 18G PIV TO LFA-LR RUNNING, FIELD START IV NOTED TO RIGHT UE, DENIES N/V.
[2021-10-17] MEDS ORDERED: naloxone 0.4 mg/ml inj IV PRN (14:45)
--- NOTE | 2021-10-17 15:25 | NUR ---
Patient in room ORTHO 4015A. I have received report from PHIL DAY FROM RECOVERY and had the opportunity to ask questions and assume patient care.
--- NOTE | 2021-10-17 15:25 | NUR ---
PT TAKEN VIA BED BACK TO ROOM 4015, WITH N93 MASK ON PT. VSS, PT DENIES PAIN, ALERT AND ASKING FOR SOMETHING TO DRINK, REPORT GIVEN TO MAIK VILLARREAL-ALL QUESTIONS ANSWERED, NO CHANGES IN ASSESSMENT-LAP SITES X 4 INTACT, PT GIVEN CALL LIGHT, BED LOW AND LOCKED, HOOKED UP TO VS MACHINE, RN IN ROOM TO RECEIVE PT.
--- NOTE | 2021-10-17 19:10 | NUR ---
Problems reprioritized. Patient report given, questions answered & plan of care reviewed with PHIL ESCOBEDO.
[2021-10-17] MEDS ORDERED: temazepam 15mg capsule PO PRN (21:00)
[2021-10-17] MEDS: HYDROcodone/acetaminophen 10/325mg tab PO PRN (21:48)
[2021-10-18] MEDS: piperacillin/tazo 3.375gm/50ml 50 ML IV SCH (00:12)
[2021-10-18] MEDS: normal saline 1000ml 1,000 ML IV SCH (00:16)
[2021-10-18 01:39] VITALS: BP 131/68
[2021-10-18] MEDS: HYDROcodone/acetaminophen 10/325mg tab PO PRN ×2 (05:05→19:20)
[2021-10-18 06:00] VITALS: BP 124/60
[2021-10-18 06:24] LABS: BASOPHILS % (AUTO) 0.1 % (0-1); EOSINOPHILS % (AUTO) 0 % (0-6); HEMATOCRIT 33.3 % (35.0-45.0); HEMOGLOBIN 10.7 g/dl (12.0-16.0); LYMPHOCYTES # (AUTO) 0.4 X10'3 (1.1-4.8); LYMPHOCYTES % (AUTO) 11.5 % (21-51); MEAN CORPUSCULAR HEMOGLOBIN 26.2 PG (27.0-31.0); MEAN CORPUSCULAR HGB CONC 32.3 g/dL (33.0-36.5); MEAN CORPUSCULAR VOLUME 81.1 FL (78-98); MEAN PLATELET VOLUME 8.8 FL (7.4-10.4); MONOCYTES # (AUTO) 0.3 X10'3 (0-0.9); MONOCYTES % (AUTO) 7.8 % (2-12); NEUTROPHILS # (AUTO) 2.9 X10'3 (1.8-7.7); NEUTROPHILS % (AUTO) 80.6 % (42-75); PLATELET COUNT 175 X10'3 (140-440); RED CELL DISTRIBUTION WIDTH 16.8 % (11.5-14.5); WHITE BLOOD COUNT 3.6 X10'3 (4.5-11.0)
--- NOTE | 2021-10-18 06:32 | NUR ---
Problems reprioritized. Patient report given, questions answered & plan of care reviewed with leo Dukes.
--- NOTE | 2021-10-18 06:50 | NUR ---
Patient in room ORTHO 4015A. I have received report from PHIL ESCOBEDO and had the opportunity to ask questions and assume patient care.
[2021-10-18 06:57] LABS: ALANINE AMINOTRANSFERASE 48 U/L (12-78); ALBUMIN/GLOBULIN RATIO 0.9 (1.1-1.5); ALKALINE PHOSPHATASE 85 IU/L (46-116); ANION GAP 9 (8-16); ASPARTATE AMINO TRANSFERASE 52 U/L (10-37); BILIRUBIN,TOTAL 0.2 MG/DL (0.1-1.0); BLOOD UREA NITROGEN 10 MG/DL (7-18); BUN/CREATININE RATIO 12.5 (6.6-38.0); CALCIUM 7.6 MG/DL (8.5-10.1); CHLORIDE 106 MMOL/L (99-107); CHOL/HDL RATIO 2.5 (0.00-4.99); CHOLESTEROL 108 MG/DL (0-200); GLUCOSE 113 MG/DL (70-104); HDL CHOLESTEROL 43 MG/DL (35-60); LDL CHOLESTEROL 54 MG/DL (50-100); POTASSIUM 4.4 MMOL/L (3.5-5.1); SODIUM 138 MMOL/L (135-145); TOTAL CARBON DIOXIDE 22.8 MMOL/L (24-32); TOTAL PROTEIN 6.5 G/DL (6.4-8.2); TRIGLYCERIDES 85 MG/DL (20-135); eGFR 76 ML/MIN
[2021-10-18] MEDS: K and/or MAG REPLACEMENT MC SCH ×2 (08:00→20:00)
[2021-10-18] MEDS: pantoprazole 40mg Tablet.DR PO SCH (09:53)
[2021-10-18] MEDS: valacyclovir 500mg tablet PO SCH (09:53)
[2021-10-18] MEDS: heparin, porcine 5000 units/ml vial SQ SCH ×2 (09:54→19:12)
[2021-10-18] MEDS: lisinopril 20mg tablet PO SCH (09:54)
[2021-10-18 10:00] VITALS: BP 124/75
[2021-10-18 18:00] VITALS: BP 98/61
--- NOTE | 2021-10-18 19:21 | NUR ---
Problems reprioritized. Patient report given, questions answered & plan of care reviewed with PHIL ESCOBEDO.
[2021-10-18 22:07] VITALS: BP 107/70
[2021-10-19 06:00] VITALS: BP 109/60
--- NOTE | 2021-10-19 06:22 | NUR ---
Problems reprioritized. Patient report given, questions answered & plan of care reviewed with leo Dukes.
[2021-10-19 06:53] LABS: BASOPHILS % (AUTO) 0.2 % (0-1); EOSINOPHILS % (AUTO) 0.4 % (0-6); HEMATOCRIT 31.1 % (35.0-45.0); HEMOGLOBIN 10.1 g/dl (12.0-16.0); LYMPHOCYTES # (AUTO) 1.2 X10'3 (1.1-4.8); LYMPHOCYTES % (AUTO) 29.7 % (21-51); MEAN CORPUSCULAR HEMOGLOBIN 26.4 PG (27.0-31.0); MEAN CORPUSCULAR HGB CONC 32.4 g/dL (33.0-36.5); MEAN CORPUSCULAR VOLUME 81.6 FL (78-98); MEAN PLATELET VOLUME 8.7 FL (7.4-10.4); MONOCYTES # (AUTO) 0.3 X10'3 (0-0.9); MONOCYTES % (AUTO) 6.3 % (2-12); NEUTROPHILS # (AUTO) 2.6 X10'3 (1.8-7.7); NEUTROPHILS % (AUTO) 63.4 % (42-75); PLATELET COUNT 145 X10'3 (140-440); RED BLOOD COUNT 3.81 X10'6 (4.20-5.60); WHITE BLOOD COUNT 4.2 X10'3 (4.5-11.0)
--- NOTE | 2021-10-19 07:05 | NUR ---
Patient in room ORTHO 4015A. I have received report from PHIL ESCOBEDO and had the opportunity to ask questions and assume patient care.
[2021-10-19 07:15] VITALS: BP_SYST 109
[2021-10-19] MEDS: pantoprazole 40mg Tablet.DR PO SCH (07:15)
[2021-10-19] MEDS: lisinopril 20mg tablet PO SCH (07:15)
[2021-10-19] MEDS: valacyclovir 500mg tablet PO SCH (07:15)
[2021-10-19] MEDS: HYDROcodone/acetaminophen 10/325mg tab PO PRN (07:16)
[2021-10-19] MEDS: heparin, porcine 5000 units/ml vial SQ SCH (07:17)
[2021-10-19 07:18] LABS: ALANINE AMINOTRANSFERASE 63 U/L (12-78); ALBUMIN 2.8 G/DL (3.4-5.0); ALBUMIN/GLOBULIN RATIO 0.9 (1.1-1.5); ALKALINE PHOSPHATASE 79 IU/L (46-116); ANION GAP 9 (8-16); ASPARTATE AMINO TRANSFERASE 62 U/L (10-37); BILIRUBIN,TOTAL 0.1 MG/DL (0.1-1.0); BLOOD UREA NITROGEN 14 MG/DL (7-18); BUN/CREATININE RATIO 15.9 (6.6-38.0); CALCIUM 7.8 MG/DL (8.5-10.1); CHLORIDE 108 MMOL/L (99-107); CREATININE 0.88 MG/DL (0.40-0.90); GLUCOSE 88 MG/DL (70-104); POTASSIUM 4.1 MMOL/L (3.5-5.1); SODIUM 142 MMOL/L (135-145); TOTAL PROTEIN 5.9 G/DL (6.4-8.2); eGFR 68 ML/MIN
[2021-10-19] MEDS ORDERED: HYDR-3964 PO (11:45)
[2021-10-19] MEDS ORDERED: HYDR-3965 PO (11:53)
--- NOTE | 2021-10-19 13:57 | NUR ---
PATIENT STABLE AND APPROPRIATE FOR DISCHARGE, IV REMOVED, NEW MEDS E-SCRIPTED TO PREFERRED PHARMACY, EDUCATION GIVEN, ALL BELONGINGS SENT WITH PATIENT, THE HOSPITAL ARRANGED AND PAID FOR YAMILKA CARGO TO TAKE THE PATIENT HOME TO [place]
== END 2021-10-19 13:57 | disposition home or self-care (01) | DRG 263 ==
LOC: ER 03:58 → ED HOLD 04:44 → EDBEDREQ 06:43 → ORTHO 4S 08:18
PROVIDERS: ADMIT Internal Medicine; ATTEND Family Medicine
PROC: 8E0W4CZ Robotic Assisted Procedure of Trunk Region, Percutaneous Endoscopic Approach (ICD-10-PCS; 2021-10-17)
PROC: BF532Z0 Other Imaging of Gallbladder and Bile Ducts using Fluorescing Agent, Intraoperative (ICD-10-PCS; 2021-10-17)
PROC: 0FT44ZZ Resection of Gallbladder, Percutaneous Endoscopic Approach (ICD-10-PCS; principal; 2021-10-17 13:17)
DX: K80.00 Calculus of gallbladder with acute cholecystitis without obstruction (principal); U07.1 COVID-19; N17.9 Acute kidney failure, unspecified; K82.1 Hydrops of gallbladder; F17.210 Nicotine dependence, cigarettes, uncomplicated; F31.9 Bipolar disorder, unspecified; I10 Essential (primary) hypertension; J45.909 Unspecified asthma, uncomplicated; M17.10 Unilateral primary osteoarthritis, unspecified knee; F15.90 Other stimulant use, unspecified, uncomplicated; R74.01 Elevation of levels of liver transaminase levels; F41.9 Anxiety disorder, unspecified; G89.29 Other chronic pain; K21.9 Gastro-esophageal reflux disease without esophagitis; M54.9 Dorsalgia, unspecified; Z56.0 Unemployment, unspecified; Z59.00 Homelessness unspecified; Z88.8 Allergy status to other drugs, medicaments and biological substances; Z90.49 Acquired absence of other specified parts of digestive tract; Z98.51 Tubal ligation status; Z79.899 Other long term (current) drug therapy; Z71.6 Tobacco abuse counseling
CPT/HCPCS: 36415; 71045; 76700; 80053; 80061; 82948; 85025; 85610; 85730; 87811; 97110; 97116; 97161; 97530; 99285; A4215; A4618; A7000; G0378; J0131; J1100; J1644; J1885; J2250; J2270; J2405; J2543; J2704; J2710; J3010; J3490; J7030; J7120

== ENCOUNTER 2022-08-03 20:49 | Emergency (ER) | payer MEDICAID ==
[~2022-08-03] VITALS: Ht 157.5 cm; Wt 68.2 kg
[~2022-08-03 20:49] MED LIST changes: -ACET5SOL2 PO; +HYDR-3717 PO; +LISI20TA28 PO; +NICO-687 TD; +OLAN5TAB75 PO; -ONDA4TAB6 PO; -PANT-47 PO; +PANT40TA54 PO; +ROPI0.2540 PO; +TRAZ-251 PO; +VALA500T PO; +VENL75TA90 PO
[2022-08-04] MEDS ORDERED: LORazepam 2 mg/ml vial IM ONE (00:35)
[2022-08-04] MEDS ORDERED: LORA-269 PO (00:45)
[2022-08-04 00:54] VITALS: BP 129/76
== END 2022-08-04 01:14 | disposition home or self-care (01) ==
LOC: ER 20:51
DX: F41.9 Anxiety disorder, unspecified (principal); I10 Essential (primary) hypertension; J45.909 Unspecified asthma, uncomplicated; K21.9 Gastro-esophageal reflux disease without esophagitis; G89.29 Other chronic pain; F31.9 Bipolar disorder, unspecified; F15.90 Other stimulant use, unspecified, uncomplicated; Z72.89 Other problems related to lifestyle; Z90.49 Acquired absence of other specified parts of digestive tract; Z98.51 Tubal ligation status; Z59.00 Homelessness unspecified; Z56.0 Unemployment, unspecified; Z79.899 Other long term (current) drug therapy; Z88.6 Allergy status to analgesic agent; Z88.8 Allergy status to other drugs, medicaments and biological substances
CPT/HCPCS: 96372; 99283; J2060